=== PATIENT | female | born 1940 | race Caucasian/White ===

== ENCOUNTER 2019-04-13 21:27 | Emergency (ER) | payer OTHER ==
[~2019-04-13] VITALS: Ht 165.1 cm; Wt 113.4 kg
--- NOTE | 2019-04-13 21:30 | NUR ---
PT LOR BLS. TAKEN TO BED 7
[2019-04-13 21:34] VITALS: BP 161/39
--- NOTE | 2019-04-13 21:41 | NUR ---
79 YO FEMALE BIBA CO RIGHT UPPER ABD PAIN . NO N/V/D. PAIN 6/10 AT THIS TIME. PAIN DOES NOT RADIATE AND IS DESCRIBED A SHARP STABBING PAIN. PT HAS CELLULITIS ON LLL DT DM. PT IS LAYING IN BED WITH BOTH SIDE RAILS UP FOR SAFETY.
--- NOTE | 2019-04-13 21:52 | NUR ---
Dr. Rabago examining patient.
[2019-04-13] MEDS ORDERED: KETOROLAC 30 MG/ML VIAL IVP ONE (22:00)
[2019-04-13] MEDS ORDERED: NACL 0.9% 1,000 ML IV ONE (22:00)
--- NOTE | 2019-04-13 22:55 | NUR ---
MULTIPLE ATTEMPTS AT IV BY JANE RN, DEDE RN AND AJ RN. UNABLE TO OBTAIN IV ACCESS. PT STATED THAT SHE DID NOT WANT IV ACCESS. ERMD AWARE.
--- NOTE | 2019-04-13 23:18 | NUR ---
PT REFUSING CENTRAL LINE
--- NOTE | 2019-04-14 00:15 | NUR ---
Dr. Rabago at bedside
--- NOTE | 2019-04-14 01:50 | NUR ---
PT REFUSED CENTRAL LINE AFTER SIGNING CONSENT. PT DECIDED THAT SHE WOULD LIKE TO JUST GO HOME WITHOUT HAVING THE LINE PLACED AND REFUSES ALL TREATMENT AT THIS TIME.
[2019-04-14] MEDS ORDERED: LORazepam 1 MG TAB PO ONE (02:00)
[2019-04-14] MEDS ORDERED: fentaNYL 0.05 MG/ML VIAL IVP ONE (02:00)
--- NOTE | 2019-04-14 02:00 | NUR ---
PATIENT REFUESING FURTHER CARE AT THIS TIME. SIGNING OUT AMA. DR. LOGAN SPOKE WITH PATIENT.
--- NOTE | 2019-04-14 02:15 | NUR ---
TRANSPORTATION ARRANGED. ETA IS BETWEEN [phone]
--- NOTE | 2019-04-14 04:29 | NUR ---
[facility] AT BEDSIDE
--- NOTE | 2019-04-14 04:36 | NUR ---
GAVE REPORT TO [facility]. POLST GIVEN TO TRANSPORT
== END 2019-04-14 04:36 | disposition left against medical advice (07) ==
LOC: MED 21:27
DX: R10.9 Unspecified abdominal pain (principal); E11.9 Type 2 diabetes mellitus without complications
CPT/HCPCS: 99281; J1885

== ENCOUNTER 2019-06-21 03:51 | Emergency (ER) | payer OTHER, SELFPAY ==
[~2019-06-21] VITALS: Ht 165.1 cm; Wt 117.9 kg
[2019-06-21 03:55] VITALS: BP 116/54
[2019-06-21] MEDS ORDERED: MORPHINE SULFATE 4 MG/ML SYR IVP ONE (03:55)
[2019-06-21] MEDS ORDERED: ONDANSETRON 4 MG/2 ML VIAL IVP ONE (03:55)
[2019-06-21] MEDS ORDERED: NACL 0.9% 1,000 ML IV ONE ×3 (03:55→05:35)
[2019-06-21 05:07] LABS: APPEARANCE,URINE CLOUDY (CLEAR); BILIRUBIN,URINE 2+ (NEGATIVE); BLOOD, URINE 2+ (NEGATIVE); COLOR,URINE YELLOW (YELLOW); LEUKOCYTE ESTERASE ,URINE 1+ (NEGATIVE); NITRITE, URINE POSITIVE (NEGATIVE); UGLUCOSE TRACE (NEGATIVE)
[2019-06-21 05:09] LABS: HEMATOCRIT 44.4 % (36-48); HEMOGLOBIN 14.3 g/dL (12.0-16.0); MEAN CORPUSCULAR HEMOGLOBIN 29 pg (27-31); MEAN CORPUSCULAR HGB CONC 32 g/dL (33-37); MEAN CORPUSCULAR VOLUME 89.6 fL (80-94); PLATELET COUNT (AUTO) 339 K/uL (140-450); RED BLOOD CELL COUNT(AUTO) 4.96 MIL/uL (4.20-5.40); RED CELL DISTRIBUTION WIDTH 15.9 % (11.6-13.7)
[2019-06-21 05:20] LABS: WHITE BLOOD COUNT (AUTO) 34.2 K/uL (4.8-10.8)
[2019-06-21] MEDS ORDERED: PIPERACILLIN/TAZOBACTAM 3.375 GM in DEXTROSE 5% 50 ML IV ONE (05:20)
[2019-06-21 05:21] LABS: RBC,URINE 0-5 /HPF (0-5); WBC,URINE 20-60 /HPF (0-5)
[2019-06-21 05:28] LABS: ALBUMIN 2.1 g/dL (3.4-5.0); ANION GAP 17.3 (8-16); ASPARTATE AMINOTRANSFERASE 13 U/L (15-37); CARBON DIOXIDE 23.5 mmol/L (21-32); CHLORIDE 94 mmol/L (98-107); CREATININE 2.7 mg/dL (0.6-1.3); GLUCOSE 367 mg/dL (74-106); POTASSIUM 4.8 mmol/L (3.5-5.1); SODIUM SERUM 130 mmol/L (136-145); TOTAL BILIRUBIN 0.8 mg/dL (0.0-1.0); UREA NITROGEN, BLOOD 31 mg/dL (7-18)
[2019-06-21 05:32] LABS: PROTHROMBIN TIME 17.2 secs (10.8-13.4)
[2019-06-21] MEDS ORDERED: PIPERACILLIN/TAZOBACTAM 3.375 GM VIAL IV ONE (05:32)
[2019-06-21] MEDS ORDERED: NACL 0.9% 500 ML IV ONE (05:35)
[2019-06-21] MEDS ORDERED: INSULIN REGULAR, HUMAN 100 UNIT/ML VIAL SUBQ ONE (05:40)
[2019-06-21 05:49] LABS: BASOPHILS % (MANUAL) 0 % (0-2); EOSINOPHILS % (MANUAL) 0 % (0-4); LYMPHOCYTES % (MANUAL) 6 % (20-46); MONOCYTES % (MANUAL) 3 % (5-12)
[2019-06-21] MEDS ORDERED: LORazepam 2 MG/ML VIAL IM ONE (06:10)
[2019-06-21] MEDS ORDERED: DONE5TAB6 PO (06:11)
[2019-06-21] MEDS ORDERED: INSU100S22 SUBQ (06:11)
[2019-06-21] MEDS ORDERED: GABA100C PO (06:11)
[2019-06-21] MEDS ORDERED: CRAN450T5 PO (06:11)
[2019-06-21] MEDS ORDERED: MULT-153 PO (06:11)
[2019-06-21] MEDS ORDERED: MAGN400S60 PO (06:11)
[2019-06-21] MEDS ORDERED: LEVO0.1331 PO (06:11)
[2019-06-21] MEDS ORDERED: FLEPED RC (06:11)
[2019-06-21] MEDS ORDERED: DOCU-299 PO (06:11)
[2019-06-21] MEDS ORDERED: BISA-213 RC (06:11)
[2019-06-21] MEDS ORDERED: SIMV10TA92 PO (06:11)
[2019-06-21] MEDS ORDERED: ACET-2619 PO (06:11)
[2019-06-21] MEDS ORDERED: ONDA4TAB PO (06:11)
[2019-06-21] MEDS ORDERED: LOSA25TA43 PO (06:11)
[2019-06-21 10:52] VITALS: BP 122/62
== END 2019-06-21 10:48 | disposition short-term general hospital (02) ==
LOC: MED 03:51 → EEVIPCON 03:51 → MED 10:48
DX: K81.9 Cholecystitis, unspecified (principal); N39.0 Urinary tract infection, site not specified; R11.2 Nausea with vomiting, unspecified; E11.9 Type 2 diabetes mellitus without complications; Z79.4 Long term (current) use of insulin; Z79.899 Other long term (current) drug therapy
CPT/HCPCS: 36415; 71045; 74176; 80053; 81001; 82948; 83605; 83880; 84484; 85025; 85610; 87040; 87086; 87635; 96361; 96365; 96372; 96375; 99285; J1815; J2270; J2405; J2543; J7030; Q0092; 87186